=== PATIENT | female | born 2000 | race Caucasian/White ===

== ENCOUNTER 2021-11-22 13:35 | Emergency (ER) | payer BC, SELFPAY ==
[2021-11-22] VITALS (42 sets, daily range): BP systolic 89–115; BP diastolic 47–75; PULSE 64–86; RESP 16; TEMP 36.4–36.5; O2SAT 85–100
--- NOTE | 2021-11-22 13:45 | DI.RAD_ITS ---
Exam(s) XR KNEE RT 2V AP,LAT XR TIB/FIB RT EXAM: XR KNEE RT 2V AP,LAT XR tib fib RT CLINICAL HISTORY: fall, deformity. TECHNIQUE: 2D digital imaging was performed of the right knee. Five views obtained. AP, lateral, Me rchant and PA tunnel views were obtained. COMPARISON: No previous for comparison. FINDINGS: BONES: There is an acute comminuted fracture of the proximal tibia. The fracture involves the latera l tibial plateau with depression of the plateau. There is impaction and displacement of the fracture . There is a mildly displaced fracture of the fibular head. No bony destructive lesion is seen. JOINTS: There is a large lipohemarthrosis. The visualized ankle is unremarkable. SOFT TISSUE: There is soft tissue swelling proximally. IMPRESSION: 1. Comminuted intra-articular fracture involving the proximal tibia as described above. 2. Mildly displaced fibular head fracture. DATA REPOSITORY: RADIATION DOSE DELIVERED:
[2021-11-22] MEDS: HYDROmorphone 2 MG/ML VIAL 1 MG IVP ×4 (14:02→18:25)
--- NOTE | 2021-11-22 15:22 | DI.VRAD_ITS ---
PROCEDURE INFORMATION: Exam: XR Right Tibia and Fibula Exam date and time: 11/22/2021 1:53 PM Age: 21 years old Clinical indication: Pain; Knee and lower leg; Right; Patient HX: Fall skiing TECHNIQUE: Imaging protocol: XR Right tibia and fibula. Views: 2 views. COMPARISON: CR XR KNEE RT 3V AP,LAT,GAIL 11/22/2021 2:45 PM FINDINGS: Bones/joints: Comminuted displaced proximal tibia fracture. It is intra-articular.. Displaced Proximal fibular fracture. . Soft tissues: Soft tissue swelling of the calf IMPRESSION: 1. Comminuted displaced proximal tibia fracture. It is intra-articular.. 2. Displaced Proximal fibular fracture. . Dictated and Authenticated by: Loree Chiu MD. Ordering:MARION Yost MD
--- NOTE | 2021-11-22 15:23 | DI.VRAD_ITS ---
PROCEDURE INFORMATION: Exam: XR Right Knee Exam date and time: 11/22/2021 1:53 PM Age: 21 years old Clinical indication: Other: Fall, deformity; Additional info: Only two view per er physician TECHNIQUE: Imaging protocol: XR Right knee. Views: 3 views. COMPARISON: No relevant prior studies available. FINDINGS: Bones/joints: Comminuted displaced proximal tibia fracture. Displaced proximal fibular fracture. . Large lipohemarthrosis in the suprapatellar bursa Soft tissues: Significant soft tissue swelling of the knee IMPRESSION: 1. Comminuted displaced proximal tibia fracture. 2. Displaced proximal fibular fracture. Dictated and Authenticated by: Loree Chiu MD. Ordering:MARION Yost MD
[2021-11-22] MEDS: Normal Saline 1,000 ML 1000 ML IV (16:07)
--- NOTE | 2021-11-22 17:05 | W.ED.GENAD ---
Discharge Plan Disposition Patient Disposition: [facility] Condition: Stable Discharge Details Clinical Impression: Fracture of proximal end of right tibia and fibula Primary Care Provider: Unknown,Unknown ED Provider: Emeli Aggarwal Home Meds and New Rx's Prescriptions: No Action dextroamphetamine-amphetamine [Adderall] 5 mg Tablet 5 mg PO DAILY 0RF escitalopram oxalate [Lexapro] 5 mg Tablet 5 mg PO DAILY 0RF Discharge Instructions Instructions: Leg Fracture (ED) Discharge Data Discharge Date/Time-TO BE ENTERED AT DEPARTURE: 11/22/21 18:27 Medical Decision Making <PHIL Allan - Last Filed: 11/23/21 09:43> Patient with comminuted, displaced, angulated proximal tibia and fibula fracture that is intra-articular with large hemarthrosis per radiology interpretation in my review Remains neurovascularly intact throughout the encounter both pre and post splint application No clinical evidence of compartment syndrome Posterior splint applied Dr. Obando orthopedist on-call was consulted and feels patient should be transported to higher level of care for surgical intervention [facility] consulted and she has been accepted by Dr. Chacko to the emergency department Patient has been stable throughout this encounter and agreeable to plan Her urine test was negative No additional evidence of trauma, complete exam performed Emeli Aggarwal pending transport to [facility] in stable condition Medical Records Medical records reviewed: Yes I reviewed the patient's medical records. Lab Data Lab results reviewed: Yes I reviewed the patient's lab results. <Emeli Aggarwal NP - Last Filed: 11/22/21 18:58> Patient with comminuted, displaced, angulated proximal tibia and fibula fracture that is intra-articular with large hemarthrosis per radiology interpretation in my review Remains neurovascularly intact throughout the encounter both pre and post splint application No clinical evidence of compartment syndrome Posterior splint applied Dr. Obando orthopedist on-call was consulted and feels patient should be transported to higher level of care for surgical intervention [facility] consulted and she has been accepted by Dr. Chacko to the emergency department Patient has been stable throughout this encounter and agreeable to plan Her urine test was negative No additional evidence of trauma, complete exam performed Emeli Aggarwal pending transport to [facility] in stable condition report of patient received. patient has remained medically stable with pain managed with current regimen. arrangement have been made by Ritika VILLARREAL for transfer to [facility] orthopedics. she is transported by ground EMS. HPI <PHIL Allan - Last Filed: 11/23/21 09:43> General Date/Time Provider Initiated Documentation: 11/22/21 13:51. HPI Narrative: This 21-year-old female who is otherwise healthy presents with report of fall while skiing high impact injury. Wearing helmet reportedly no known head injury, event witnessed by partner noted to leg IMS prior to arrival. Denies any additional injuries. Specifically denies any head injury or neck pain. There was no reported loss of consciousness. Patient denies chance of or any abdominal pain. Denies history of coagulopathy. Denies any numbness or tingling. Lives in [place] reportedly. Related Data Home Medications Medication Instructions Recorded Confirmed dextroamphetamine-amphetamine 5 mg 5 mg PO DAILY 11/22/21 11/22/21 tablet (Adderall) escitalopram oxalate 5 mg tablet 5 mg PO DAILY 11/22/21 11/22/21 (Lexapro) Allergies Allergy/AdvReac Type Severity Reaction Status Date / Time No Known Allergies Allergy Unverified 11/22/21 13:46 General Stated Complaint: Trauma JUAN: 3 Review of Systems <PHIL Allan - Last Filed: 11/23/21 09:43> All systems reviewed & are unremarkable except as noted in HPI and below PFSH <PHIL Allan - Last Filed: 11/23/21 09:43> All Active Problems (Updated 11/22/21 @ 18:58 by Emeli Aggarwal NP) Fracture of proximal end of right tibia and fibula (Acute) Social History Smoking/Tobacco Use Status: Never Smoking risk assessment performed?: Yes Alcohol Intake: current Alcohol Intake frequency: a few times a month Drug use: Never Substance use type: does not use Do you feel safe at home: Yes Do you feel safe in your relationship?: Yes Exam <PHIL Allan - Last Filed: 11/23/21 09:43> Const General: cooperative and acute distress HENMT Head: normal to inspection Eyes Pupils: PERRL Neck Other: No midline tenderness Chest Chest: normal inspection of the chest Resp Effort & Inspection: normal respiratory effort Auscultation: clear to auscultation bilaterally Cardio Rate: regular rate Rhythm: regular rhythm GI Other: No abdominal tenderness present, no evidence of trauma Skin General skin exam: no rashes or lesions noted Neuro General: patient alert and patient oriented x3 Sensory Exam: no sensory deficits noted Other: GCS 15 Extrem Other: Obvious deformity with active masses noted to proximal Pepcid region No tenderness to right hip or right ankle Neurovascularly intact, DP and PT intact bilateral lower extremities, sensation intact distally, cap refill intact distally Specifically sensation is intact to right foot and lower leg Course <PHIL Allan - Last Filed: 11/23/21 09:43> Vital Signs Vital signs: Vital Signs Temperature 36.4 C L 11/22/21 13:40 Pulse 72 11/22/21 13:40 Respiratory Rate 16 11/22/21 13:40 Blood Pressure 115/75 11/22/21 13:40 Pulse Oximetry 100 11/22/21 13:40 Temperature 36.5 C 11/22/21 15:20 Temperature Source Tympanic 11/22/21 15:20 Pulse 78 11/22/21 16:00 Respiratory Rate 16 11/22/21 15:20 Respiratory Effort 11/22/21 15:21 Respiratory Depth Normal 11/22/21 15:09 Blood Pressure 108/54 L 11/22/21 16:00 Blood Pressure Mean 66 11/22/21 16:00 Blood Pressure Position Supine 11/22/21 13:40 Pulse Oximetry 99 11/22/21 16:10 Oxygen Delivery Method Room Air 11/22/21 15:20 Oxygen Flow Rate 0 11/22/21 15:20 Pain Level 6 11/22/21 15:20 Lab/Test Results Lab/Test Results: POC- Test(urine) Negative Sign Out <PHIL Allan - Last Filed: 11/23/21 09:43> Sign Out Data: Sign Out Comment: pending [facility] transfer to ER, Dr Chacko accepted, proximal tib/fib fx Last updated by Ritika Mishra PA at 11/22/21 17:28 PAWSS <PHIL Allan - Last Filed: 11/23/21 09:43> Have you Been Recently Intoxicated or Drunk Within the Last 30 days?: No Have you Ever Experienced Previous Episodes of Alcohol Withdrawal?: No Have you ever Experienced Withdrawal Seizures?: No Have you ever Experienced Delirium Tremens(DT)s?: No Have you ever undergone Alcohol Rehabilitation Treatment (i.e, inpt ot outpatient treatment programs)?: No Have you ever Experienced Blackouts?: No Have you ever Combined Alcohol with other Downers within the last 90 days?: No Have you ever Combined Alcohol with any other Substance of Abuse during the last 90 days?: No Positive Blood Alcohol level on Presentation? [PCS.BAL]: No Evidence of Increased Autonomic Activity (i.e. HR>120, tremor, sweating, agitation, nausea)?: No Result: 0 <Emeli Aggarwal NP - Last Filed: 11/22/21 18:58> Result: 0
[2021-11-22] MEDS: Ondansetron 4 MG/2 ML VIAL IVP (17:24)
--- NOTE | 2021-11-22 17:55 | NUR.NOTE ---
pt anticip[place] [facility] [place] has good movement and sensation in the toes, fiberglass /leonel splint ins WNLNursing Note:
== END 2021-11-22 18:27 | disposition short-term general hospital (02) ==
PROVIDERS: Emergency Provider Nurse Practitioner Acute Care
DX: S82.191A Other fracture of upper end of right tibia, initial encounter for closed fracture (principal); S82.491A Other fracture of shaft of right fibula, initial encounter for closed fracture; V00.321A Fall from snow-skis, initial encounter
CPT/HCPCS: 29515; 51702; 81025; 96361; 96374; 96375; 96376; 99285; 73560; 73590; J2405